=== PATIENT | female | born 1995 | race Asian ===

== ENCOUNTER 2017-01-10 14:17 | Emergency (ER) | payer OTHER ==
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
[2017-01-10] MEDS ORDERED: NS 1,000 ML IV ONE (14:28)
[2017-01-10 14:37] LABS: ABSOLUTE NRBC COUNT 0.02 10^3/uL (0-0.01); ADD DIFF? YES; ADD MORPH? NO; ADD SCAN? NO; ATYPICAL LYMPHOCYTE FLAG 20 (0-99); FRAGMENT RBC FLAG 0 (0-99); HEMATOCRIT 44.6 % (38.0-47.0); LEFT SHIFT FLG 30 (0-99); LIPEMIA HEMOLYSIS FLAG 90 (0-99); MEAN CELL HEMOGLOBIN 33.4 pg (27.9-34.1); MEAN CELL HEMOGLOBIN CONCENTR. 35.9 g/dL (32.4-36.7); MEAN CELL VOLUME 93.1 fL (81.5-99.8); NRBC-AUTO% 0.2 % (0.0-0.2); PLATELET CLUMPS FLAG 0 (0-99); PLATELET COUNT 318 10^3/uL (150-400); RED BLOOD CELL COUNT 4.79 10^6/uL (4.18-5.33); RED CELL DISTRIBUTION WIDTH 11.2 % (11.5-15.2)
[2017-01-10 14:39] VITALS: BP 110/84; PULSE 83; RESP 22; TEMP 97.3; O2SAT 94
[2017-01-10] MEDS ORDERED: LORazepam 2 MG/ML INJ IVP ONE (14:47)
[2017-01-10] MEDS ORDERED: IOPAMIDOL (ISOVUE-300) 100 ML BTL IV ONE (14:49)
[2017-01-10 14:50] LABS: ANION GAP 13 mEq/L (8-16); CALCIUM 9.8 mg/dL (8.5-10.4); CARBON DIOXIDE 26 mEq/l (22-31); CHLORIDE 101 mEq/L (97-110); CREATININE 0.9 mg/dL (0.6-1.0); GLOMERULAR FILTRATION RATE > 60; GLUCOSE 96 mg/dL (70-100); POTASSIUM 4.4 mEq/L (3.5-5.2); SODIUM 140 mEq/L (134-144)
[2017-01-10 16:22] LABS: PLATELET ESTIMATE ADEQUATE (ADEQ)
[2017-01-10] MEDS ORDERED: KETOROLAC 30 MG/1 ML SDV IVP ONE (16:33)
== END 2017-01-10 19:17 | disposition home or self-care (01) ==
DX: S09.90XA Unspecified injury of head, initial encounter (principal); S20.319A Abrasion of unspecified front wall of thorax, initial encounter; S30.810A Abrasion of lower back and pelvis, initial encounter; S40.212A Abrasion of left shoulder, initial encounter; T14.8 Other injury of unspecified body region; V13.9XXA Unspecified pedal cyclist injured in collision with car, pick-up truck or van in traffic accident, initial encounter; Y92.410 Unspecified street and highway as the place of occurrence of the external cause
CPT/HCPCS: 96374; J1885; J2060; Q9967

== ENCOUNTER 2018-12-30 05:59 | Emergency (ER) | payer OTHER ==
[2018-12-30] MEDS ORDERED: NS 1,000 ML IV ONE (06:06)
--- NOTE | 2018-12-30 06:07 | EDPHY ---
H & P Stated Complaint: Dizzy, fainted this AM after working at computer, Time Seen by Provider: 12/30/18 06:07 HPI/ROS: HPI CHIEF COMPLAINT: Syncope. HISTORY OF PRESENT ILLNESS: This is a 23-year-old female she is otherwise healthy, however does take control and spironolactone for acne, she presents emergency room with a syncopal episode this morning. Patient states she was up at 5:00 a.m. Early this morning to get ready to travel to [place] for triathlon. She reports she was standing in her tests reading emails when all the sudden she got lightheaded and then had a syncopal episode. She states she slept fine last night. No drugs or alcohol. She believes herself to be well-hydrated. She did not have any chest pain or shortness of breath she did not have any pleuritic pain or palpitations. She decided come the emergency room to get checked out. She states she otherwise feels fine now. She denies any recent illness. Denies any history of cardiovascular disease. Past Medical History: Denies medical history except for acne on spironolactone. Takes control. No history of PE or DVT. Past Surgical History: Denies recent surgical history Social History: Denies drugs alcohol tobacco. Family History: Denies any premature cardiac or cardiovascular disease in her family. ROS REVIEW OF SYSTEMS: 10 Systems were reviewed and negative with the exception of the elements mentioned in the history of present illness. Exam Constitutional appears well nontoxic triage nursing summary reviewed, vital signs reviewed, awake/alert. Eyes normal conjunctivae and sclera, EOMI, PERRLA. HENT normal inspection, atraumatic, moist mucus membranes, no epistaxis, neck supple/ no meningismus, no raccoon eyes. Respiratory clear to auscultation bilaterally, normal breath sounds, no respiratory distress, no wheezing. Cardiovascular rate normal, regular rhythm, no murmur, no edema, distal pulses normal. Gastrointestinal soft, non-tender, no rebound, no guarding, normal bowel sounds, no distension, no pulsatile mass. Genitourinary no CVA tenderness. Musculoskeletal no midline vertebral tenderness, full range of motion, no calf swelling, no tenderness of extremities, no meningismus, good pulses, neurovascularly intact. Skin pink, warm, & dry, no rash, skin atraumatic. Neurologic awake, alert and oriented x 3, AAOx3, moves all 4 extremities equally, motor intact, sensory intact, CN II-XII intact, normal cerebellar, normal vision, normal speech. Psychiatric normal mood/affect. Heme/Lymph/Immune no lymphadenopathy. Differential Diagnosis: Includes but is not limited to in a particular order orthostatic hypotension leading to syncope, vasovagal syncope, dehydration, cardiac arrhythmia, pulmonary embolism Medical Decision Making: Plan for this patient for syncope check orthostatic vital signs, IV establishment IV fluid bolus, basic labs, EKG, D-dimer troponin and re-evaluate. Re-evaluation: EKG interpretation by me on record in [facility] system. Impression time of EKG 6:15 a.m. Sinus rhythm rate of 56, no abnormal intervals. No signs of acute ischemia. Atrial premature complex present. Otherwise unremarkable EKG. ED x-ray chest one view: Negative for acute cardiopulmonary disease. Point of care troponin 0.00 Orthostatics noted to be negative. D-dimer negative. 0736: Patient re-evaluated this time she is resting comfortably. She states she feels much better. She denies any chest pain or shortness of breath. Patient ambulated well throughout the emergency room without difficulty. She has stable vital signs. In terms of syncope is noted her D-dimer is negative. I think pulmonary embolism is very unlikely. Additionally troponin negative. She has a nonischemic EKG without any signs of WPW or Brugada. She does have atrial premature complex present. I did discussed return precautions with her she understands to return to the emergency room if she develops any new symptoms includes passing out again, vomiting, chest pain, shortness of breath. I do recommend she stays well hydrated and rest today. She should follow up with primary care doctor as well as Cardiology. Return to the ER for worsening symptoms she is comfortable this plan. Source: Patient - Personal History LMP (Females 10-55): 1-7 Days Ago Current Tetanus Diphtheria and Acellular Pertussis (TDAP): Yes - Medical/Surgical History Hx Asthma: No Hx Chronic Respiratory Disease: No Hx Diabetes: No Hx Cardiac Disease: No Hx Renal Disease: No Hx Cirrhosis: No Hx Alcoholism: No Hx HIV/AIDS: No Hx Splenectomy or Spleen Trauma: No Other PMH: denies - Social History Smoking Status: Never smoked Constitutional: Initial Vital Signs Temperature (C) 36.6 C 12/30/18 06:00 Heart Rate 58 L 12/30/18 06:00 Respiratory Rate 17 12/30/18 06:00 Blood Pressure 104/55 L 12/30/18 06:00 O2 Sat (%) 96 12/30/18 06:00 O2 Delivery Mode Room Air Allergies/Adverse Reactions: No Known Allergies Allergy (Unverified 12/30/18 06:00) Medical Decision Making - Data Points Laboratory Results: Laboratory Results 12/30/18 06:15 12/30/18 06:15 Medications Given: Discontinued Medications Sodium Chloride (Ns) 1,000 mls @ 0 mls/hr IV EDNOW ONE; Wide Open PRN Reason: Protocol Stop: 12/30/18 06:07 Last Admin: 12/30/18 06:18 Dose: 1,000 mls Point of Care Test Results: Chemistry 12/30/18 06:19 POC Troponin I 0.00 ng/mL ng/mL (0.00-0.08) Departure - Departure Disposition: Home, Routine, Self-Care Clinical Impression: Syncope Qualifiers: Syncope type: vasovagal syncope Qualified Code(s): R55 - Syncope and collapse Condition: Good Instructions: Syncope (ED) Additional Instructions: 1. Stay well-hydrated and rest. 2. Return to the emergency room if he develops worsening symptoms includes passing out, chest pain, shortness of breath or not doing well. 3. Please follow up with Cardiology Referrals: Norman Tineo MD [Medical Doctor] - As per Instructions NONE *PRIMARY CARE P,. [Unknown] - As per Instructions
[2018-12-30 06:25] LABS: PLATELET COUNT 328 10^3/uL (150-400)
[2018-12-30 07:51] VITALS: BP 108/77
--- NOTE | 2018-12-30 07:53 | CPEKG ---
Test Reason : OPEN Blood Pressure : / mmHG Vent. Rate : 056 BPM Atrial Rate : 055 BPM P-R Int : 137 ms QRS Dur : 098 ms QT Int : 422 ms P-R-T Axes : 039 070 007 degrees QTc Int : 408 ms Sinus rhythm Atrial premature complex Confirmed by Clay Almodovar ([id number]) on 12/30/2018 7:52:41 AM Also confirmed by Clay Almodovar ([id number]) on 12/30/2018 7:52:51 AM Referred By: Clay Almodovar Confirmed By:Clay Almodovar
== END 2018-12-30 07:52 | disposition home or self-care (01) ==
DX: R55 Syncope and collapse (principal); E86.9 Volume depletion, unspecified
CPT/HCPCS: 84484-ER